=== PATIENT | female | born 1985 | race Caucasian/White ===

== ENCOUNTER 2018-05-29 05:23 | Emergency (ER) | END 2018-05-29 08:27 | disposition home or self-care (01) ==

== ENCOUNTER 2018-06-06 01:20 | Emergency (ER) | END 2018-06-06 06:57 | disposition home or self-care (01) ==

== ENCOUNTER 2018-07-18 02:09 | Emergency (ER) | END 2018-07-18 04:23 | disposition home or self-care (01) ==